=== PATIENT | female | born 1995 | race Caucasian/White ===

== ENCOUNTER 2017-03-14 21:28 | Emergency (ER) | payer OTHER ==
[~2017-03-14] VITALS: Ht 154.9 cm; Wt 56.7 kg
[2017-03-14 21:28] VITALS: BP 120/72
--- NOTE | 2017-03-15 08:12 | REP ---
Right four views: There is no fracture or dislocation. Mineralization joint spaces are normal. There is a tiny opacity in the soft tissues, possibly a foreign body. Signed by Anibal Anderson MD 03/15/2017 08:03 A
--- NOTE | 2017-03-16 21:31 | ED PDOC ---
Post-Departure Follow-Up jordan arambula faxed formal report of right fingers for fu Magdy Goode MD Mar 16, 2017 21:31
== END 2017-03-14 22:16 | disposition home or self-care (01) ==
LOC: M ED 21:58
DX: S60.011A Contusion of right thumb without damage to nail, initial encounter (principal); W23.1XXA Caught, crushed, jammed, or pinched between stationary objects, initial encounter; Y92.099 Unspecified place in other non-institutional residence as the place of occurrence of the external cause; Y93.89 Activity, other specified; Y99.9 Unspecified external cause status

== ENCOUNTER → 2017-04-16 | Outpatient (REF) | payer OTHER | LOC: M SFHCWAGY 10:02 | PROVIDERS: ATTEND Nurse Practitioner Women's Health | DX: Z12.4 Encounter for screening for malignant neoplasm of cervix (principal) ==

== ENCOUNTER → 2017-06-30 | Outpatient (REF) | payer OTHER ==
[2017-06-30 12:24] LABS: ALBUMIN/GLOBULIN RATIO 1.43 (1.00-1.93); ALKALINE PHOSPHATASE 79 U/L (45-117); ALT/SGPT 19 U/L (12-78); ANION GAP 8 MEQ/L (8-16); AST/SGOT 15 U/L (15-37); BILIRUBIN,TOTAL 0.6 MG/DL (0.2-1.0); BLOOD UREA NITROGEN 15 MG/DL (7-18); CALCIUM LEVEL 8.6 MG/DL (8.5-10.1); CARBON DIOXIDE LEVEL 28 MEQ/L (21-32); CHLORIDE LEVEL 105 MEQ/L (98-107); CHOLESTEROL LEVEL 179 MG/DL (<200); CREATININE FOR GFR 0.67 MG/DL (0.55-1.02); FREE T4 0.89 NG/DL (0.76-1.46); GLOMERULAR FILTRATION RATE > 60.0 (>60); GLUCOSE, FASTING 87 MG/DL (70-105); POTASSIUM SERUM 4.3 MEQ/L (3.5-5.1); SODIUM LEVEL 141 MEQ/L (136-145); TOTAL PROTEIN 6.8 GM/DL (6.4-8.2); TRIGLYCERIDES LEVEL 35 MG/DL (<150)
[2017-06-30 12:49] LABS: MEAN CORPUSCULAR HEMOGLOBIN 32.7 pg (27.0-33.0); MEAN CORPUSCULAR HGB CONC 35.3 g/dl (32.0-36.5); MEAN CORPUSCULAR VOLUME 92.5 fl (80.0-96.0); RED CELL DISTRIBUTION WIDTH 12.1 % (11.5-14.5)
== END ==
LOC: M SFHCPLAZ 09:41
PROVIDERS: ATTEND Nurse Practitioner Family
DX: R51 Headache (principal); F41.9 Anxiety disorder, unspecified; Z13.220 Encounter for screening for lipoid disorders

== ENCOUNTER 2017-10-20 10:42 | Outpatient (RCR) | payer OTHER | END 2017-10-23 | LOC: M PT 10:42 | PROVIDERS: ATTEND Psychiatry & Neurology Neurology | DX: Z51.89 Encounter for other specified aftercare (principal); M54.9 Dorsalgia, unspecified ==

== ENCOUNTER 2017-10-24 13:01 | Outpatient (RCR) | payer OTHER | END 2017-11-23 | LOC: M PT 13:01 | DX: Z51.89 Encounter for other specified aftercare (principal); M54.2 Cervicalgia; M54.89 Other dorsalgia | CPT/HCPCS: 97010 ==

== ENCOUNTER → 2018-05-29 | Outpatient (REF) | payer OTHER | LOC: M SFHCWAGY 13:33 | DX: Z12.4 Encounter for screening for malignant neoplasm of cervix (principal) ==

== ENCOUNTER → 2019-03-10 | Outpatient (CLI) | payer OTHER ==
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
== END ==
LOC: M PAIN 09:00
PROVIDERS: ATTEND Nurse Practitioner Family
DX: M79.18 Myalgia, other site (principal); Z86.59 Personal history of other mental and behavioral disorders; G43.909 Migraine, unspecified, not intractable, without status migrainosus; Z88.1 Allergy status to other antibiotic agents; Z88.8 Allergy status to other drugs, medicaments and biological substances; Z79.899 Other long term (current) drug therapy

== ENCOUNTER → 2019-08-27 | Outpatient (REF) | payer OTHER ==
[2019-08-27 13:11] LABS: APPEARANCE, URINE HAZY (CLEAR); BACTERIA, URINE AUTO 1+ (NEGATIVE); BILIRUBIN, URINE AUTO NEGATIVE (NEGATIVE); BLOOD, URINE BLOOD 1+ (NEGATIVE); COLOR, URINE YELLOW (YELLOW); GLUCOSE, URINE (UA) AUTO NEGATIVE (NEGATIVE); KETONE, URINE AUTO NEGATIVE (NEGATIVE); LEUKOCYTE ESTERASE, URINE AUTO 1+ (NEGATIVE); MUCUS, URINE SMALL (NEGATIVE); NITRITE, URINE AUTO NEGATIVE (NEGATIVE); PROTEIN, URINE AUTO NEGATIVE (NEGATIVE); RBC, URINE AUTO 5 /HPF (0-3); SPECIFIC GRAVITY URINE AUTO 1.014 (1.002-1.035); SQUAMOUS EPITHELIAL CELL UR AU 1 /HPF (0-6); UROBILINOGEN, URINE AUTO 0.2 mg/dL (0.0-2.0); WBC, URINE AUTO 16 /HPF (0-3)
== END ==
LOC: M LAB REF 12:39
PROVIDERS: ATTEND Physician Assistant
DX: N39.0 Urinary tract infection, site not specified (principal)

== ENCOUNTER 2020-12-15 04:16 | Emergency (ER) | payer OTHER, SELFPAY ==
[~2020-12-15] VITALS: Ht 154.9 cm; Wt 72.2 kg
[2020-12-15] MEDS ORDERED: CEFD1CAP8 (04:37)
[2020-12-15 05:05] LABS: BASO % 0.5 % (0.0-1.0); EOS # 0.1 10^3/uL (0.0-0.5); EOS % 1.1 % (0.0-3.0); HEMATOCRIT 40.5 % (36.0-47.0); HEMOGLOBIN 13.8 g/dl (12.0-15.5); LYMPH # 3.8 10^3/uL (1.5-5.0); LYMPH % 48.4 % (24.0-44.0); MEAN CORPUSCULAR HEMOGLOBIN 31.5 pg (27.0-33.0); MEAN CORPUSCULAR HGB CONC 34.1 g/dl (32.0-36.5); MEAN CORPUSCULAR VOLUME 92.5 fl (80.0-96.0); MONO # 0.9 10^3/uL (0.0-0.8); NEUTROPHILS # 3.1 10^3/uL (1.5-8.5); NEUTROPHILS % 38.7 % (36.0-66.0); PLATELET COUNT, AUTOMATED 268 10^3/uL (150-450); RED BLOOD COUNT 4.38 10^6/uL (4.00-5.40); WHITE BLOOD COUNT 7.9 10^3/uL (4.0-10.0)
[2020-12-15 05:44] LABS: ALBUMIN 3.8 GM/DL (3.2-5.2); ALT/SGPT 32 U/L (12-78); BILIRUBIN,DIRECT < 0.1 MG/DL (0.0-0.2); BILIRUBIN,TOTAL 0.2 MG/DL (0.2-1.0); BLOOD UREA NITROGEN 15 MG/DL (7-18); CARBON DIOXIDE LEVEL 27 MEQ/L (21-32); CHLORIDE LEVEL 108 MEQ/L (98-107); CREATININE FOR GFR 0.78 MG/DL (0.55-1.30); GLOMERULAR FILTRATION RATE > 60.0 (>60); GLUCOSE, FASTING 93 MG/DL (70-100); HCG, SERUM QUANTITATIVE < 1.0 MIU/ML; LIPASE 63 U/L (73-393); POTASSIUM SERUM 4.6 MEQ/L (3.5-5.1); SODIUM LEVEL 142 MEQ/L (136-145)
[2020-12-15] MEDS ORDERED: ISOVUE-370 76% 100ML VIAL As Ordered ONE (07:39)
[2020-12-15] MEDS ORDERED: ONDANSETRON 4MG/2ML VIAL IV ONE (07:45)
[2020-12-15] MEDS ORDERED: KETOROLAC 30 MG/ML 1ML VIAL IV ONE (07:45)
--- NOTE | 2020-12-15 08:25 | REPVR ---
PROCEDURE INFORMATION: Exam: CT Abdomen And Pelvis With Contrast Exam date and time: 12/15/2020 7:34 AM Age: 25 years old Clinical indication: Abdominal pain; Additional info: Right sided abdominal pain TECHNIQUE: Imaging protocol: Computed tomography of the abdomen and pelvis with intravenous contrast. Radiation optimization: All CT scans at this facility use at least one of these dose optimization techniques: automated exposure control; mA and/or kV adjustment per patient size (includes targeted exams where dose is matched to clinical indication); or iterative reconstruction. Contrast material: ISOVUE 370; Contrast volume: 100 ml; Contrast route: INTRAVENOUS (IV); COMPARISON: US ECHOGRAPHY TRANSVAGINAL 04/26/2015 12:28 PM FINDINGS: Liver: Hepatomegaly. Gallbladder and bile ducts: Normal. No calcified stones. No ductal dilation. Pancreas: Normal. No ductal dilation. Spleen: Normal. No splenomegaly. Adrenal glands: Normal. No mass. Kidneys and ureters: Normal. No hydronephrosis. Stomach and bowel: Unremarkable. No obstruction. No mucosal thickening. Appendix: No evidence of appendicitis. Intraperitoneal space: Unremarkable. No free air. No significant fluid collection. Vasculature: Unremarkable. No abdominal aortic aneurysm. Lymph nodes: Unremarkable. No enlarged lymph nodes. Urinary bladder: Unremarkable as visualized. Reproductive: Involuting probably hemorrhagic left ovarian corpus luteal cyst. Bones/joints: Unremarkable. No acute fracture. Soft tissues: Unremarkable. IMPRESSION: Involuting probably hemorrhagic left ovarian corpus luteal cyst. No bowel obstruction. Normal appendix. Mild hepatomegaly. No hydronephrosis or nephrolithiasis bilaterally. Electronically signed by: Tye Kirk On 12/15/2020 08:25:39 AM
[2020-12-15] MEDS ORDERED: KETO10TAB PO (08:37)
[2020-12-15] MEDS ORDERED: ONDA4TAB6 PO (08:37)
[2020-12-15 08:51] VITALS: BP 100/56
== END 2020-12-15 08:53 | disposition home or self-care (01) ==
LOC: M ED 04:16
DX: R10.9 Unspecified abdominal pain (principal); R11.2 Nausea with vomiting, unspecified; J45.909 Unspecified asthma, uncomplicated; M41.9 Scoliosis, unspecified; G43.909 Migraine, unspecified, not intractable, without status migrainosus; Z88.0 Allergy status to penicillin; Z88.1 Allergy status to other antibiotic agents
CPT/HCPCS: 74177; 80048; 80076; 81001; 83690; 84702; 85025; 96374; 96375; 99284; J1885; J2405; Q9967

== ENCOUNTER 2020-12-22 14:39 | Emergency (ER) | payer MEDICAID, OTHER, SELFPAY ==
[~2020-12-22] VITALS: Ht 154.9 cm; Wt 71.5 kg
[~2020-12-22 14:39] MED LIST: CEFD1CAP8; KETO10TAB PO; ONDA4TAB6 PO
--- OUTSIDE RECORDS SUMMARY | 2020-12-22 14:43 | CCD ---
Author Author [facility] Organization [facility] Address Unknown Phone Unavailable Care Team Providers Care Linux Admin Name Role Phone Zainab Stout PROBLEMS Type Condition ICD9-CM Code IMI71-IC Code Onset Dates Condition S tatus SNOMED Code Notes Problem Frequent headaches R51 Active 662137898 Problem Family history of diabetes mellitus (DM) Z83.3 Active 455329794 Problem Anxiety F41.9 Active 84689851 Problem Chronic seasonal allergic rhinitis, unspecified trigger J30.2 Active 081032471 ALLERGIES Allergen (clinical drug ingredient) Drug/Non Drug Allergy do cumented on EMR Reaction Allergy Type Onset Date Status ethinyl estradiol / ethynodiol Zovia (28)([facility] Code:32561-0 260-01) Anxiety Drug Allergy Active azithromycin Zithromax(ND Code:[address]-88) Hives, Rash Drug Aller gy Active amoxicillin Amoxicillin(NDC Code:[address]-77) Hives, Rash Drug Robb rgy Active ENCOUNTERS from 1994 to 2020-12-20 Encounter Location Date Provider Diagnosis [address] [address] Nov, 021 Zainab Stout IMMUNIZATIONS Vaccine Route Administration Date Status Influenza (6mo & up) Fluzone Unknown Oct 03, 2017 Adm inistered SOCIAL HISTORY Tobacco Use: Social History Observation Description Date Details (start date - stop date) Never Smoker Sex Assigned At : Social History Observation Description Sex Assigned At Unknown Education: Question Answer Notes Level of Education: Finished College Language: Question Answer Notes Languages spoken: Algerian Samaritan: Question Answer Notes Samaritan 33 None No voodoo beliefs that would impact health care. Sexual Hx: Question Answer Notes Had sex in the last 12 months (vaginal, oral, or anal)? Yes Have you ever had an STD? No with Men only Use protection? No Alcohol Screening: Question Answer Notes Did you have a drink containing alcohol in the past year? Ye s Points 2 Interpretation Negative How often did you have six or more drinks on one occas ion in the past year? Never (0 points) How many drinks did you have on a typica l day when you were drinking in the past year? 1 or 2 (0 points) How often did you have a drink containing alcohol in t he past year? Two to four times a month (2 points) BMI Care Goal Follow-Up Question Answer Notes Above Normal BMI Follow-Up Lifestyle education regarding t Tobacco Use: Question Answer Notes Are you a: never smoker never smoker REASON FOR REFERRAL No Information VITAL SIGNS No information MEDICATIONS Medication SIG (Take, Route, Frequency, Duration) Notes Start Da te End Date Status Venlafaxine HCl ER 37.5 MG 1 capsule with food Orally Once a day for 30 day(s) Not-Taking Methocarbamol 500 MG 1 tab Orally three times a day as needed Active MiraLax 1 packet mixed with 8 ounces of fluid Orally Onc e a day for 30 day(s) March, Not-Taking Azelastine HCl 0.1 % 1 puff in each nostril Nasally Twice a day for 30 day(s) March, Not-Taking NuvaRing 0.12-0.015 MG/24HR 1 ring Vaginal for 30 day(s) 1 Mar, 2019 Active Clobetasol Propionate 0.05 % 1 application to rash on hands to affected area Externally Twice a day as needed for 30 day(s) March, Not-Taking PROCEDURES No Information RESULTS No Results REASON FOR VISIT ER Visit [facility] 12/15; Abd Pain MEDICAL (GENERAL) HISTORY Type Description Date Medical History childhood asthma Medical History scoliosis Medical History post concussive syndrome Medical History anxiety Medical History seasonal allergies Medical History migraines Surgical History T & A Surgical History laparoscopy in [place] 12/08/16 Hospitalization History surgery Goals Section No Information Health Concerns No Information MEDICAL EQUIPMENT No Information MENTAL STATUS No Information FUNCTIONAL STATUS No Information ASSESSMENTS No Information PLAN OF TREATMENT Medication Medication Name Sig Start Date Stop Date NuvaRing 0.12-0.015 MG/24HR 1 ring Vaginal for 30 day(s) March, Next Appt Details Provider Name:Zainab Stout, 2020-12-29 09:1 5:00 AM, [address] [place], [address], Provider Name:Marita Vincent, 2021-01-12 03:00:00 PM, [address] [place], [address], Insurance Providers Payer Name Payer Address Payer Phone Insured Name Patient Relati onship to Insured Coverage Start Date Coverage End Date [facility] [employer] [facility] [address] [facility] [phone] MARA RYDER self
--- OUTSIDE RECORDS SUMMARY | 2020-12-22 14:43 | CCD | Continuity of Care Document ---
Author Author Ryanne GRUBBS Organization Unknown Address [address] [place] [address] Phone [phone] Problems Description No Information Available Social History Type Date Description Comments Sex Unknown Allergies, Adverse Reactions, Alerts Description No Information Available Medications Description No Information Available Immunizations Description No Information Available Vital Signs Description No Information Available Results Description No Information Available Procedures Description No Information Available Medical Devices Description No Information Available Encounters Description No Information Available Assessments Date Code Description Provider 12/05/2020 Z20.828 Contact with and (almazan spected) exposure to other viral communicable diseases Anna France Plan of Treatment No Information Available Functional Status Description No Information Available Mental Status Description No Information Available Referrals Description No Information Available
--- OUTSIDE RECORDS SUMMARY | 2020-12-22 14:43 | CCD | Continuity of Care Document ---
Author Author Ryanne GRUBBS Organization Unknown Address [address] [place] [address] Phone [phone] Problems Description No Information Available Social History [...]
--- OUTSIDE RECORDS SUMMARY | 2020-12-22 14:43 | CCD | Continuity of Care Document ---
Author Author Ryanne DIXON M.D. Organization Unknown Address [address] [place] [address] Phone [phone] Care Team Providers Care Process Assistant Name Role Phone Zainab Stout AUT [phone] Problems Active Problems Provider Date Pain in limb Dorinda Dixon M.D. Onset: 09/11/2017 Neck pain Dorinda Dixon M.D. Onset: 09/11/2017 Social History Type Date Description Comments Sex Unknown Tobacco Use Start: Unknown Patient has never smoked Allergies, Adverse Reactions, Alerts Active Allergies Reaction Severity Comments Date Amoxicillin 09/11/2017 Zithromax 09/11/2017 Medications Active Medications SIG Qnty Indications Ordering Provide r Date Zofran Odt 4mg Tablets Dispers take 1 tabs every 8 hours as needed for nausea or migraines. anya Dixon M.D. 09/12/2017 Methocarbamol 500mg Tablets Take 1 tablet by mouth up to three times a day as needed muscle spasms. anya Dixon M.D. 09/11/2017 Immunizations Description No Information Available Vital Signs Date Vital Result Comment 11/21/2020 12:08pm Respiratory Rate 12 /min Height 61 inches 5'1" Weight 145.00 lb BMI (Body Mass Index) 27.4 kg/m2 [place] Body Weight 105 lb 03/11/2019 1:38pm BP Systolic 120 mmHg BP Diastolic 68 mmHg Heart Rate 76 /min Respiratory Rate 12 /min Height 61 inches 5'1" Weight 145.00 lb BMI (Body Mass Index) 27.4 kg/m2 [place] Body Weight 105 lb Results Description No Information Available Procedures Description No Information Available Medical Devices Description No Information Available Encounters Type Date Location Provider Dx Diagnosis Office Visit 11/21/2020 11:30a Main office - [place] Dorinda weir M.D. Q07.00 Arnold-Chiari syndrome without spina bif reagan or hydrocephalus M54.2 Cervicalgia Assessments Date Code Description Provider 11/21/2020 Q07.00 Arnold-Chiari syndrome without s lo bifida or hydrocephalus Dorinda Dixon M.D. 11/21/2020 M54.2 Cervicalgia Dorinda Dixon M.D. Plan of Treatment No Information Available Functional Status Description No Information Available Mental Status Description No Information Available Referrals Refer to Dr Reason for Referral Status Appt Date Dorinda Dixon M.D. Created [address] [place] [address] [phone] Dorinda Dixon M.D. Created [address] [place] [address] [phone]
--- OUTSIDE RECORDS SUMMARY | 2020-12-22 14:43 | CCD | Continuity of Care Document ---
Author Author Ryanne FITCH MD Organization Unknown Address [address], [address] [place] [address] Phone [phone] Care Team Providers Care Marble Polisher Hand Name Role Phone Dorinda Lan Md AUTM [phone] Zainab Stout Unavailable Problems Description No Information Available Social History Type Date Description Comments Sex Unknown ETOH Use Currently consumes alcohol Socia lly Tobacco Use Reviewed: 11/22/20 Patient has never smoked Recreational Drug Use Denies Drug Use Smoking Status Reviewed: 11/22/20 Patient has never smoked Allergies, Adverse Reactions, Alerts Active Allergies Reaction Severity Comments Date Amoxicillin Urticaria 03/11/2018 Zithromax Urticaria 03/11/2018 Medications Active Medications SIG Qnty Indications Ordering Provide r Date Nexplanon 68mg Implant dir ected Unknown Methocarbamol 500mg Tablets A S needed Unknown Immunizations Description No Information Available Vital Signs Date Vital Result Comment 11/22/2020 1:44pm Height 61 inches 5'1" Weight 155.00 lb BMI (Body Mass Index) 29.3 kg/m2 BP Systolic 121 mmHg BP Diastolic 88 mmHg Heart Rate 91 /min Body Temperature 97.7 F Body Temperature 36.5 C 03/08/2019 9:37am BP Systolic 108 mmHg BP Diastolic 73 mmHg Heart Rate 83 /min Body Temperature 97.6 F Body Temperature 36.4 C Results Description No Information Available Procedures Description No Information Available Medical Devices Description No Information Available Encounters Type Date Location Provider Dx Diagnosis Office Visit 11/22/2020 1:40p [facility] Napoleon Fitch MD Q0 7.00 Arnold-Chiari syndrome without spina bifida or hydrocephalus Assessments Date Code Description Provider 11/22/2020 Q07.00 Arnold-Chiari syndrome without s lo bifida or hydrocephalus Napoleon Fitch MD Plan of Treatment 11/22/2020 - Napoleon Fitch MD* 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
--- OUTSIDE RECORDS SUMMARY | 2020-12-22 14:44 | CCD | Continuity of Care Document ---
Author Author Ryanne FITCH MD Organization Unknown Address [address], [address] [place] [address] Phone [phone] Care Team Providers Care Fretted String Instrument Repairer Name Role Phone Dorinda Lan Md AUTM [phone] Zainab Stout Unavailable Problems Description No Information [...]
--- OUTSIDE RECORDS SUMMARY | 2020-12-22 14:44 | CCD | Continuity of Care Document ---
Author Author Ryanne DIXON M.D. Organization Unknown Address [address] [place] [address] Phone [phone] Care Team Providers Care Product Info Specialist Name Role Phone Dre Azul M.D. AUTM [phone] Zainab Stout AUTM [phone] Problems Active Problems Provider Date Pain in [...] hours as needed for nausea or migraines. 15samira Dixon M.D. 09/12/2017 Methocarbamol 500mg Tablets Take 1 tablet by mouth up to three times a day as needed muscle spasms. 15samira Dixon M.D. 09/11/2017 Immunizations Description No Information Available Vital Signs Date Vital Result Comment 11/21/2020 12:08pm Respiratory Rate 12 /min Height 61 inches 5'1" Weight 145.00 lb BMI (Body Mass Index) 27.4 kg/m2 [place] Body Weight 105 lb 03/11/2019 1:38pm BP Systolic 120 mmHg BP Diastolic 68 mmHg Heart Rate 76 /min Respiratory Rate 12 /min Height 61 inches 5'1" Weight 145.00 lb BMI (Body Mass Index) 27.4 kg/m2 [place] Body Weight 105 lb Results Description No Information Available Procedures Description No Information Available Medical Devices Description No Information Available Encounters Description No Information Available Assessments Date Code Description Provider 11/21/2020 Q07.00 Arnold-Chiari syndrome without s lo bifida or hydrocephalus Dorinda Dixon M.D. 11/21/2020 M54.2 Cervicalgia Dorinda Dixon M.D. Plan of Treatment No Information Available Functional Status Description No Information Available Mental Status Description No Information Available Referrals Description No Information Available
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
--- OUTSIDE RECORDS SUMMARY | 2020-12-22 14:44 | CCD | Continuity of Care Document ---
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
[2020-12-22] MEDS ORDERED: MIRA3350 PO (14:49)
[2020-12-22] MEDS ORDERED: COLON CLEANSE PO (14:49)
[2020-12-22] MEDS ORDERED: [UNRECOGNIZED DRUG - OTHER] (14:49)
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
[2020-12-22 15:47] LABS: BASO % 0.5 % (0.0-1.0); EOS % 0.7 % (0.0-3.0); HEMATOCRIT 39.9 % (36.0-47.0); HEMOGLOBIN 13.3 g/dl (12.0-15.5); LYMPH # 1.9 10^3/uL (1.5-5.0); LYMPH % 32.3 % (24.0-44.0); MEAN CORPUSCULAR HEMOGLOBIN 30.4 pg (27.0-33.0); MEAN CORPUSCULAR HGB CONC 33.3 g/dl (32.0-36.5); MEAN CORPUSCULAR VOLUME 91.1 fl (80.0-96.0); MONO # 0.5 10^3/uL (0.0-0.8); NEUTROPHILS # 3.4 10^3/uL (1.5-8.5); NEUTROPHILS % 58.3 % (36.0-66.0); PLATELET COUNT, AUTOMATED 235 10^3/uL (150-450); RED BLOOD COUNT 4.38 10^6/uL (4.00-5.40); WHITE BLOOD COUNT 5.9 10^3/uL (4.0-10.0)
[2020-12-22 16:18] LABS: ALBUMIN 3.9 GM/DL (3.2-5.2); BILIRUBIN,DIRECT 0.1 MG/DL (0.0-0.2); BILIRUBIN,TOTAL 0.3 MG/DL (0.2-1.0); TOTAL PROTEIN 7.4 GM/DL (6.4-8.2)
--- NOTE | 2020-12-22 17:17 | REP ---
INDICATION: constipation/pain. COMPARISON: None TECHNIQUE: Two views FINDINGS: There is a moderate to large amount of content seen throughout the colon. The organ silhouettes are for the most part are obscured by the intestinal content. There is no evidence of free air. There is a thoracolumbar scoliosis. IMPRESSION: Intestinal content as described above consistent with the clinical diagnosis of constipation. <Electronically signed by Apollo Mahajan > 12/22/20 [id number]
[2020-12-22] MEDS ORDERED: RA M1.74 PO (17:30)
[2020-12-22 17:53] VITALS: BP 114/68
== END 2020-12-22 17:54 | disposition home or self-care (01) ==
LOC: M ED 14:39
DX: K59.00 Constipation, unspecified (principal); F41.9 Anxiety disorder, unspecified; Z79.899 Other long term (current) drug therapy; Z88.0 Allergy status to penicillin; Z88.1 Allergy status to other antibiotic agents

== ENCOUNTER → 2020-12-28 | Outpatient (REF) | payer OTHER ==
[~2020-12-28] MED LIST changes: +COLON CLEANSE PO; +MIRA3350 PO; +RA M1.74 PO; +[UNRECOGNIZED DRUG - OTHER]
== END ==
LOC: M SFHCWAGY 16:47
PROVIDERS: ATTEND Nurse Practitioner Family
DX: Z12.4 Encounter for screening for malignant neoplasm of cervix (principal); Z01.419 Encounter for gynecological examination (general) (routine) without abnormal findings

== ENCOUNTER → 2020-12-30 | Outpatient (CLI) | payer OTHER ==
[2020-12-30 12:28] LABS: ALBUMIN 3.9 GM/DL (3.2-5.2); ALT/SGPT 27 U/L (12-78); BILIRUBIN,TOTAL 0.4 MG/DL (0.2-1.0); BLOOD UREA NITROGEN 19 MG/DL (7-18); CALCIUM LEVEL 9.3 MG/DL (8.5-10.1); CARBON DIOXIDE LEVEL 28 MEQ/L (21-32); CHLORIDE LEVEL 105 MEQ/L (98-107); CHOLESTEROL LEVEL 194 MG/DL (<200); CHOLESTEROL RISK RATIO 2.852 (<5); CREATININE FOR GFR 0.76 MG/DL (0.55-1.30); FREE T4 0.99 NG/DL (0.76-1.46); GLOMERULAR FILTRATION RATE > 60.0 (>60); GLUCOSE, FASTING 76 MG/DL (70-100); HDL CHOLESTEROL 68 MG/DL (>40); LDL CHOLESTEROL 119 MG/DL (<100); NON-HDL-C 126 MG/DL; POTASSIUM SERUM 4.2 MEQ/L (3.5-5.1); SODIUM LEVEL 141 MEQ/L (136-145); TOTAL PROTEIN 7.1 GM/DL (6.4-8.2); TRIGLYCERIDES LEVEL 33 MG/DL (<150)
[2020-12-30 12:32] LABS: HEMOGLOBIN A1c 5.2 %
== END ==
LOC: M LAB 09:31
PROVIDERS: ATTEND Nurse Practitioner Family
DX: K59.00 Constipation, unspecified (principal); Z83.3 Family history of diabetes mellitus; Z13.220 Encounter for screening for lipoid disorders

== ENCOUNTER → 2021-01-15 | Outpatient (CLI) | payer OTHER ==
--- NOTE | 2021-01-15 18:06 | REP ---
INDICATION: LEFT OVARIAN CYST. COMPARISON: 05/23/2015. TECHNIQUE: Transabdominal scanning performed. FINDINGS: Uterine dimensions are 6.8 x 3.7 x 5.3 cm. Endometrial echo is 7 mm in AP dimension and centrally placed. Uterus is retroverted. The bladder measures 9.1 x 8.3 x 5.6 cm. The right ovary has dimensions of 3.7 x 1.8 x 2.5 cm. It's Doppler flow is normal with a resistive index of 0.55. The left ovary dimensions are 2.0 x 1.7 x 2.7 cm. It's Doppler flow was normal with resistive index of 0.55. There is no adnexal mass identified. No free fluid is seen in the cul-de-sac. IMPRESSION: Negative pelvic ultrasound. <Electronically signed by Anibal De La Rosa > 01/15/21 [id number]
== END ==
LOC: M WHC 15:53
PROVIDERS: ATTEND Nurse Practitioner Family
DX: Z87.42 Personal history of other diseases of the female genital tract (principal)

== ENCOUNTER → 2021-01-21 | Outpatient (REF) | LOC: M LABSMTC 10:55 | PROVIDERS: ATTEND Pediatrics | DX: Z11.52 Encounter for screening for COVID-19 (principal) ==

== ENCOUNTER → 2021-04-02 | Outpatient (REF) | payer OTHER | LOC: M PLALAB 14:40 | PROVIDERS: ATTEND Nurse Practitioner Family | DX: E55.9 Vitamin D deficiency, unspecified (principal) ==

== ENCOUNTER → 2021-05-30 | Outpatient (CLI) | payer OTHER ==
[2021-05-30 18:01] LABS: ALBUMIN 3.9 GM/DL (3.2-5.2); ALT/SGPT 23 U/L (12-78); BILIRUBIN,TOTAL 0.2 MG/DL (0.2-1.0); BLOOD UREA NITROGEN 17 MG/DL (7-18); CALCIUM LEVEL 9.4 MG/DL (8.5-10.1); CARBON DIOXIDE LEVEL 28 MEQ/L (21-32); CHLORIDE LEVEL 105 MEQ/L (98-107); CREATININE FOR GFR 0.67 MG/DL (0.55-1.30); GLOMERULAR FILTRATION RATE > 60.0 (>60); GLUCOSE, FASTING 83 MG/DL (70-100); POTASSIUM SERUM 4.2 MEQ/L (3.5-5.1); SODIUM LEVEL 141 MEQ/L (136-145); TOTAL PROTEIN 7.3 GM/DL (6.4-8.2)
== END ==
LOC: M PLALAB 14:37
PROVIDERS: ATTEND Nurse Practitioner Family
DX: B35.1 Tinea unguium (principal)

== ENCOUNTER 2021-08-10 15:04 | Emergency (ER) | payer OTHER, MEDICAID ==
[~2021-08-10] VITALS: Ht 154.9 cm; Wt 76.0 kg
[2021-08-10] MEDS ORDERED: KETOROLAC TROMETHAMINE 10 MG TAB PO ONE (18:30)
--- NOTE | 2021-08-10 19:10 | REPVR ---
PROCEDURE INFORMATION: Exam: CT Cervical Spine Without Contrast Exam date and time: 08/10/2021 6:29 PM Age: 25 years old Clinical indication: Neck pain; Additional info: Neck pain radiating to left shoulder TECHNIQUE: Imaging protocol: Computed tomography images of the cervical spine without contrast. Radiation optimization: All CT scans at this facility use at least one of these dose optimization techniques: automated exposure control; mA and/or kV adjustment per patient size (includes targeted exams where dose is matched to clinical indication); or iterative reconstruction. COMPARISON: No relevant prior studies available. FINDINGS: Bones/joints: No acute fracture. Normal alignment. Discs/Spinal canal/Neural foramina: No significant disc protrusion. No severe spinal canal stenosis. No significant neural foraminal narrowing. Lungs: Lung apices are normal. Soft tissues: Unremarkable. IMPRESSION: No acute findings. Electronically signed by: Lucian Roth On 08/10/2021 19:09:44 PM
--- NOTE | 2021-08-10 20:05 | REP ---
INDICATION: left shoulder pain. COMPARISON: None. TECHNIQUE: Three views of the left shoulder were performed. FINDINGS: The acromioclavicular and glenohumeral relationships are within normal limits. There is no acute fracture or destructive osseous lesion. IMPRESSION: Within normal limits <Electronically signed by Apollo Mahajan > 08/10/212000
--- NOTE | 2021-08-10 20:05 | REP ---
INDICATION: left shoulder pain. COMPARISON: None. TECHNIQUE: PA and lateral FINDINGS: The superior mediastinal structures are midline. The cardiac silhouette is unremarkable in size, shape, and position. The diaphragmatic surfaces of the lungs are regular, and the costophrenic angles are clear. The pulmonary chao are clear. The imaged osseous structures are intact. IMPRESSION: There is no acute cardiopulmonary disease. <Electronically signed by Apollo Mahajan > 08/10/212001
[2021-08-10] MEDS ORDERED: NAPR-837 PO (20:38)
[2021-08-10] MEDS ORDERED: METH-1164 PO (20:38)
[2021-08-10] MEDS ORDERED: LIDO5DIS41 TD (20:38)
[2021-08-10 21:17] VITALS: BP 100/63
--- NOTE | 2021-08-11 05:17 | ECGEPIP ---
[facility] - ED Test Date: 2021-08-10 Pat Name: MARA RYDER Department: Room: - Gender: Female Verification Rep: SCOT : 1995 Requested By: Magdy Wright Order Number: [id number] Reading MD: Hernán Handy Measurements Intervals [place] Rate: 74 P: 31 [place]: 124 QRS: 51 QRSD: 80 T: 30 QT: 378 QTc: 419 Interpretive Statements Normal sinus rhythm with sinus arrhythmia NONSPECIFIC T WAVE ABNORMALITY(S) NO PRIORS FOR COMPARISON Electronically Signed on 08-11-2021 5:17:11 EDT by Hernán Handy
== END 2021-08-10 21:20 | disposition home or self-care (01) ==
LOC: M ED 15:04
DX: R07.89 Other chest pain (principal); M54.2 Cervicalgia; M25.512 Pain in left shoulder; R00.2 Palpitations; R05 Cough; Z88.0 Allergy status to penicillin; Z88.1 Allergy status to other antibiotic agents

== ENCOUNTER → 2021-08-22 | Outpatient (CLI) | payer OTHER ==
[~2021-08-22] MED LIST changes: +LIDO5DIS41 TD; +METH-1164 PO; +NAPR-837 PO
[2021-08-22 16:16] LABS: ALBUMIN 3.6 GM/DL (3.2-5.2); ALT/SGPT 19 U/L (12-78); BILIRUBIN,TOTAL 0.4 MG/DL (0.2-1.0); BLOOD UREA NITROGEN 13 MG/DL (7-18); CALCIUM LEVEL 9.2 MG/DL (8.5-10.1); CARBON DIOXIDE LEVEL 28 MEQ/L (21-32); CHLORIDE LEVEL 107 MEQ/L (98-107); CREATININE FOR GFR 0.72 MG/DL (0.55-1.30); GLOMERULAR FILTRATION RATE > 60.0 (>60); GLUCOSE, FASTING 84 MG/DL (70-100); POTASSIUM SERUM 4.1 MEQ/L (3.5-5.1); SODIUM LEVEL 138 MEQ/L (136-145)
[2021-08-22 16:18] LABS: TOTAL 25(OH) VITAMIN D 29.4 NG/ML (30.0-100.0)
== END ==
LOC: M PLALAB 11:50
PROVIDERS: ATTEND Nurse Practitioner Family
DX: E55.9 Vitamin D deficiency, unspecified (principal)

== ENCOUNTER → 2021-09-11 | Outpatient (CLI) | payer OTHER ==
[2021-09-11 14:28] LABS: BASO % 0.6 % (0.0-1.0); EOS % 0.4 % (0.0-3.0); HEMATOCRIT 36.5 % (36.0-47.0); HEMOGLOBIN 12.5 g/dl (12.0-15.5); LYMPH % 27.2 % (24.0-44.0); MEAN CORPUSCULAR HEMOGLOBIN 31.1 pg (27.0-33.0); MEAN CORPUSCULAR HGB CONC 34.2 g/dl (32.0-36.5); MEAN CORPUSCULAR VOLUME 90.8 fl (80.0-96.0); MONO # 0.6 10^3/uL (0.0-0.8); MONO % 7.9 % (2.0-8.0); NEUTROPHILS # 4.6 10^3/uL (1.5-8.5); NEUTROPHILS % 63.5 % (36.0-66.0); PLATELET COUNT, AUTOMATED 257 10^3/uL (150-450); RED BLOOD COUNT 4.02 10^6/uL (4.00-5.40); WHITE BLOOD COUNT 7.3 10^3/uL (4.0-10.0)
[2021-09-11 14:45] LABS: HEMOGLOBIN A1c 5.2 %
[2021-09-11 15:03] LABS: FREE T4 1.02 NG/DL (0.76-1.46)
[2021-09-11 15:44] LABS: HIV 1&2 SCREEN CENTAUR NEGATIVE (NEGATIVE)
[2021-09-11 17:06] LABS: GC DNA AMPLIFICATION NEGATIVE (NEGATIVE)
== END ==
LOC: M PLALAB 10:49
PROVIDERS: ATTEND Advanced Practice Midwife
DX: Z34.91 Encounter for supervision of normal pregnancy, unspecified, first trimester (principal); Z3A.08 8 weeks gestation of pregnancy

== ENCOUNTER → 2021-10-09 | Outpatient (CLI) | payer OTHER ==
--- NOTE | 2021-10-09 11:00 | REP ---
INDICATION: CALCULUS OF KIDNEY COMPARISON: None TECHNIQUE: Real time morales scale ultrasound examination using curved array transducer. FINDINGS: Bilateral kidneys are normal in contour, size, echogenicity, and reniform shape. No hydronephrosis, nephrolithiasis, cystic or renal mass lesion. No perinephric fluid collection. Right kidney measures 11.5 x 4.7 x 4.1 cm. Left kidney measures 10.7 x 5.1 x 4.8 cm. Bladder demonstrates normal bilateral ureteral jets. IMPRESSION: 1. Normal renal ultrasound. 2. <Electronically signed by Jose Richardson > 10/09/21 [id number]
== END ==
LOC: M WHC 10:09
PROVIDERS: ATTEND Family Medicine
DX: N20.0 Calculus of kidney (principal)

== ENCOUNTER → 2021-10-09 | Outpatient (CLI) | payer OTHER | LOC: M PLALAB 11:50 | PROVIDERS: ATTEND Specialist | DX: Z36.9 Encounter for antenatal screening, unspecified (principal); Z3A.00 Weeks of gestation of pregnancy not specified ==

== ENCOUNTER → 2021-11-12 | Outpatient (REF) ==
[~2021-11-12] MED LIST changes: -CEFD1CAP8; +CEFD300C41
[2021-11-12 12:21] LABS: RSV AMPLIFICATION NEGATIVE (NEGATIVE)
== END ==
LOC: M EMP 11:17
PROVIDERS: ATTEND Family Medicine
DX: Z11.52 Encounter for screening for COVID-19 (principal); Z20.822 Contact with and (suspected) exposure to COVID-19

== ENCOUNTER → 2021-11-22 | Outpatient (CLI) | payer OTHER, MEDICAID ==
[~2021-11-22] MED LIST changes: +CEFD1CAP8; -CEFD300C41
--- NOTE | 2021-11-22 10:14 | REP ---
INDICATION: ENCONUTER FOR SUPERVISION. COMPARISON: None. TECHNIQUE: Transabdominal scanning FINDINGS: Multiple ultrasonographic images of the gravid uterus shows a single living intrauterine gestation in the breech presentation. Doppler interrogation of the heart shows a heart rate of 135 beats per minute. The placenta is anterior and not low-lying. The cervix measures 3.3 cm in length and is closed. The subjective amniotic fluid volume is within normal limits. BPD: 3.9 cm 17 weeks 5 days AC: 14.1 cm 17 weeks 3 days AC: 12.7 cm 18 weeks 2 days FL: 2.7 cm 18 weeks 0 days The estimated weight is 224 g which is at the 21st percentile. anatomical structures to be unremarkable are as follows: Thalami, cavum septum pellucidum, cerebellum, cisterna magna, cerebral ventricles, spine, kidneys, urinary bladder, three-vessel umbilical cord, cord insertion, upper lip, stomach, and extremities. Structures seen suboptimally are as follows: Four-chamber heart and ventricular outflow tracks. IMPRESSION: Single living intrauterine gestation as described above with an estimated gestational age of 17 weeks 5 days via composite criteria and an estimated date of delivery of 04/27/2022 by today's exam. No anomalies were detected, however, I recommend a follow-up examination to re-evaluate four-chamber heart view and ventricular outflow tracks. <Electronically signed by Apollo Mahajan > 11/22/21 [id number]
== END ==
LOC: M WHC 08:35
PROVIDERS: ATTEND Specialist
DX: Z34.02 Encounter for supervision of normal first pregnancy, second trimester (principal); Z3A.17 17 weeks gestation of pregnancy

== ENCOUNTER → 2021-12-10 | Outpatient (CLI) | payer OTHER ==
[~2021-12-10] MED LIST changes: -CEFD1CAP8; +CEFD300C41
== END ==
LOC: M WHC 11:25
PROVIDERS: ATTEND Specialist
DX: Z36.9 Encounter for antenatal screening, unspecified (principal); Z3A.19 19 weeks gestation of pregnancy

== ENCOUNTER → 2021-12-26 | Outpatient (REF) | payer OTHER ==
[2021-12-26 17:49] LABS: APPEARANCE, URINE MANUAL HAZY (CLEAR); COLOR, URINE MANUAL LT YELLOW (YELLOW)
[2021-12-26 17:50] LABS: BILIRUBIN, URINE MANUAL NEGATIVE (NEGATIVE); BLOOD URINE MANUAL NEGATIVE (NEGATIVE); GLUCOSE, URINE (UA) MANUAL NEGATIVE (NEGATIVE); KETONE, URINE MANUAL NEGATIVE (NEGATIVE); LEUKOCYTE ESTERASE, URINE MAN TRACE (NEGATIVE); NITRITE, URINE MANUAL NEGATIVE (NEGATIVE); PH,URINE MAN 6.5 UNITS (5.0 - 7.0); PROTEIN, URINE MANUAL NEGATIVE (NEGATIVE); UROBILINOGEN, URINE MANUAL NORMAL (NORMAL)
[2021-12-26 18:52] LABS: AMORPHOUS SEDIMENT, URINE MOD AMOUNT (NEGATIVE); BACTERIA, URINE MOD AMOUNT; MUCUS, URINE SMALL AMOUNT (NEGATIVE); RBC, URINE NONE SEEN /hpf (0-3); SQUAMOUS EPITHELIAL CELL URINE LARGE AMOUNT /hpf (SMALL AMT)
[2021-12-26 18:54] LABS: HYALINE CAST, URINE 0-1 /lpf (0-1)
[2021-12-26 20:04] LABS: GC DNA AMPLIFICATION NEGATIVE (NEGATIVE)
== END ==
LOC: M PLALAB 15:41
PROVIDERS: ATTEND Obstetrics & Gynecology
DX: Z36.9 Encounter for antenatal screening, unspecified (principal); Z3A.23 23 weeks gestation of pregnancy

== ENCOUNTER → 2022-02-04 | Outpatient (CLI) | payer OTHER, MEDICAID ==
[2022-02-04 17:12] LABS: AMORPHOUS SEDIMENT SMALL (NEGATIVE); APPEARANCE, URINE CLOUDY (CLEAR); BACTERIA, URINE AUTO NEGATIVE (NEGATIVE); BILIRUBIN, URINE AUTO NEGATIVE (NEGATIVE); BLOOD, URINE BLOOD NEGATIVE (NEGATIVE); COLOR, URINE YELLOW (YELLOW); GLUCOSE, URINE (UA) AUTO NEGATIVE (NEGATIVE); KETONE, URINE AUTO NEGATIVE (NEGATIVE); LEUKOCYTE ESTERASE, URINE AUTO NEGATIVE (NEGATIVE); MUCUS, URINE SMALL (NEGATIVE); NITRITE, URINE AUTO NEGATIVE (NEGATIVE); PROTEIN, URINE AUTO NEGATIVE (NEGATIVE); RBC, URINE AUTO 1 /HPF (0-3); SPECIFIC GRAVITY URINE AUTO 1.018 (1.002-1.035); SQUAMOUS EPITHELIAL CELL UR AU 1 /HPF (0-6); UROBILINOGEN, URINE AUTO 0.2 mg/dL (0.0-2.0); WBC, URINE AUTO 1 /HPF (0-3)
[2022-02-04 17:50] LABS: HEMATOCRIT 33.2 % (36.0-47.0); HEMOGLOBIN 11.3 g/dl (12.0-15.5); MEAN CORPUSCULAR HEMOGLOBIN 31.5 pg (27.0-33.0); MEAN CORPUSCULAR VOLUME 92.5 fl (80.0-96.0); PLATELET COUNT, AUTOMATED 250 10^3/uL (150-450); RED BLOOD COUNT 3.59 10^6/uL (4.00-5.40); WHITE BLOOD COUNT 10.7 10^3/uL (4.0-10.0)
== END ==
LOC: M PLALAB 13:39
PROVIDERS: ATTEND Obstetrics & Gynecology
DX: Z34.92 Encounter for supervision of normal pregnancy, unspecified, second trimester (principal); Z3A.23 23 weeks gestation of pregnancy

== ENCOUNTER → 2022-02-20 | Outpatient (CLI) | payer OTHER, MEDICAID ==
[2022-02-20 14:03] LABS: BASO % 0.4 % (0.0-1.0); EOS # 0.1 10^3/uL (0.0-0.5); EOS % 0.7 % (0.0-3.0); HEMOGLOBIN 12.3 g/dl (12.0-15.5); LYMPH # 2.2 10^3/uL (1.5-5.0); LYMPH % 20.7 % (24.0-44.0); MEAN CORPUSCULAR HEMOGLOBIN 31.8 pg (27.0-33.0); MEAN CORPUSCULAR HGB CONC 34.2 g/dl (32.0-36.5); MONO # 0.8 10^3/uL (0.0-0.8); MONO % 7.6 % (2.0-8.0); NEUTROPHILS # 7.4 10^3/uL (1.5-8.5); NEUTROPHILS % 70.1 % (36.0-66.0); PLATELET COUNT, AUTOMATED 228 10^3/uL (150-450); RED BLOOD COUNT 3.87 10^6/uL (4.00-5.40); WHITE BLOOD COUNT 10.5 10^3/uL (4.0-10.0)
[2022-02-20 15:01] LABS: ALBUMIN 2.8 GM/DL (3.2-5.2); ALT/SGPT 19 U/L (12-78); BILIRUBIN,TOTAL 0.2 MG/DL (0.2-1.0); BLOOD UREA NITROGEN 10 MG/DL (7-18); CALCIUM LEVEL 8.8 MG/DL (8.5-10.1); CARBON DIOXIDE LEVEL 25 MEQ/L (21-32); CHLORIDE LEVEL 107 MEQ/L (98-107); CHOLESTEROL LEVEL 261 MG/DL (<200); CHOLESTEROL RISK RATIO 2.747 (<5); CREATININE FOR GFR 0.61 MG/DL (0.55-1.30); FREE T4 0.94 NG/DL (0.76-1.46); GLOMERULAR FILTRATION RATE > 60.0 (>60); GLUCOSE, FASTING 89 MG/DL (70-100); HDL CHOLESTEROL 95 MG/DL (>40); LDL CHOLESTEROL 141 MG/DL (<100); NON-HDL-C 166 MG/DL; SODIUM LEVEL 137 MEQ/L (136-145); THYROID STIMULATING HORMONE 0.907 uIU/ML (0.358-3.740); TOTAL 25(OH) VITAMIN D 31.5 NG/ML (30.0-100.0); TOTAL PROTEIN 6.3 GM/DL (6.4-8.2); TRIGLYCERIDES LEVEL 126 MG/DL (<150)
[2022-02-20 16:10] LABS: HEMOGLOBIN A1c 4.9 %
== END ==
LOC: M PLALAB 11:57
PROVIDERS: ATTEND Physician Assistant Medical
DX: E55.9 Vitamin D deficiency, unspecified (principal); Z83.3 Family history of diabetes mellitus; J30.2 Other seasonal allergic rhinitis; F41.9 Anxiety disorder, unspecified

== ENCOUNTER → 2022-03-18 | Outpatient (REF) | payer OTHER | LOC: M WUC 12:16 | PROVIDERS: ATTEND Physician Assistant | DX: J02.9 Acute pharyngitis, unspecified (principal) ==

== ENCOUNTER → 2022-03-26 | Outpatient (REF) | payer OTHER | LOC: M PLALAB 08:47 | PROVIDERS: ATTEND Obstetrics & Gynecology | DX: Z36.89 Encounter for other specified antenatal screening (principal); Z3A.36 36 weeks gestation of pregnancy ==

== ENCOUNTER 2022-04-17 12:40 | Outpatient (CLI) | payer OTHER ==
[~2022-04-17] VITALS: Ht 154.9 cm; Wt 81.6 kg
[2022-04-17 13:16] VITALS: BP 126/70
[2022-04-17] MEDS ORDERED: PEPSID (13:24)
[2022-04-17] MEDS ORDERED: FLON1SPR NARES (13:24)
[2022-04-17] MEDS ORDERED: PRENTAB9 PO (13:24)
[2022-04-17] MEDS ORDERED: COLA100C5 PO (13:24)
[2022-04-17] MEDS ORDERED: HOME MED LIST COMPLETE! XX SCH (13:25)
[2022-04-17] MEDS: guaiFENesin/CODEINE SYRUP 5 ML UDC PO PRN (15:37)
[2022-04-17 15:48] VITALS: BP 127/61
[2022-04-17 17:01] VITALS: BP 113/62
== END 2022-04-17 17:05 | disposition home or self-care (01) ==
LOC: M LDO 12:40
PROVIDERS: ATTEND Advanced Practice Midwife
DX: O99.513 Diseases of the respiratory system complicating pregnancy, third trimester (principal); R05.3 Chronic cough; U09.9 Post COVID-19 condition, unspecified; Z3A.39 39 weeks gestation of pregnancy

== ENCOUNTER → 2022-09-23 | Outpatient (REF) ==
[~2022-09-23] MED LIST changes: +COLA100C5 PO; +FLON1SPR NARES; +PEPSID; +PRENTAB9 PO
[2022-09-23 10:48] LABS: RSV AMPLIFICATION NEGATIVE (NEGATIVE)
== END ==
LOC: M LABSMTC 09:20
PROVIDERS: ATTEND Family Medicine
DX: Z20.822 Contact with and (suspected) exposure to COVID-19 (principal)

== ENCOUNTER → 2022-09-26 | Outpatient (REF) | LOC: M LABSMTC 10:28 | PROVIDERS: ATTEND Family Medicine | DX: Z20.822 Contact with and (suspected) exposure to COVID-19 (principal) ==

== ENCOUNTER → 2022-12-18 | Outpatient (REF) ==
[2022-12-18 13:41] LABS: RSV AMPLIFICATION NEGATIVE (NEGATIVE)
== END ==
LOC: M LABSMTC 11:38
PROVIDERS: ATTEND Family Medicine
DX: Z11.52 Encounter for screening for COVID-19 (principal)

== ENCOUNTER → 2022-12-24 | Outpatient (REF) ==
[2022-12-24 12:16] LABS: RSV AMPLIFICATION NEGATIVE (NEGATIVE)
== END ==
LOC: M EMP 10:39
PROVIDERS: ATTEND Family Medicine
DX: Z11.59 Encounter for screening for other viral diseases (principal)

== ENCOUNTER → 2023-02-10 | Outpatient (REF) | payer OTHER ==
[2023-02-10 19:17] LABS: APPEARANCE, URINE CLEAR (CLEAR); BACTERIA, URINE AUTO NEGATIVE (NEGATIVE); BILIRUBIN, URINE AUTO NEGATIVE (NEGATIVE); BLOOD, URINE BLOOD NEGATIVE (NEGATIVE); COLOR, URINE YELLOW (YELLOW); GLUCOSE, URINE (UA) AUTO NEGATIVE (NEGATIVE); KETONE, URINE AUTO NEGATIVE (NEGATIVE); LEUKOCYTE ESTERASE, URINE AUTO NEGATIVE (NEGATIVE); MUCUS, URINE SMALL (NEGATIVE); NITRITE, URINE AUTO NEGATIVE (NEGATIVE); PROTEIN, URINE AUTO NEGATIVE (NEGATIVE); RBC, URINE AUTO 0 /HPF (0-3); SPECIFIC GRAVITY URINE AUTO 1.018 (1.002-1.035); SQUAMOUS EPITHELIAL CELL UR AU 0 /HPF (0-6); UROBILINOGEN, URINE AUTO 0.2 mg/dL (0.0-2.0); WBC, URINE AUTO 1 /HPF (0-3)
== END ==
LOC: M SFHCPLAZ 17:45
PROVIDERS: ATTEND Physician Assistant Medical
DX: R35.0 Frequency of micturition (principal)

== ENCOUNTER → 2023-07-01 | Outpatient (CLI) | payer OTHER ==
[2023-07-01 17:19] LABS: BASO % 0.4 % (0.0-1.0); EOS # 0.1 10^3/uL (0.0-0.5); EOS % 1.2 % (0.0-3.0); HEMATOCRIT 38.9 % (36.0-47.0); HEMOGLOBIN 12.9 g/dl (12.0-15.5); LYMPH # 2.5 10^3/uL (1.5-5.0); LYMPH % 37.3 % (24.0-44.0); MEAN CORPUSCULAR HEMOGLOBIN 30.1 pg (27.0-33.0); MEAN CORPUSCULAR HGB CONC 33.2 g/dl (32.0-36.5); MEAN CORPUSCULAR VOLUME 90.9 fl (80.0-96.0); MONO # 0.5 10^3/uL (0.0-0.8); MONO % 7.4 % (2.0-8.0); NEUTROPHILS # 3.6 10^3/uL (1.5-8.5); NEUTROPHILS % 53.6 % (36.0-66.0); PLATELET COUNT, AUTOMATED 275 10^3/uL (150-450); RED BLOOD COUNT 4.28 10^6/uL (4.00-5.40); WHITE BLOOD COUNT 6.7 10^3/uL (4.0-10.0)
[2023-07-01 17:37] LABS: ALBUMIN 3.7 G/DL (3.2-5.2); ALKALINE PHOSPHATASE 82 U/L (46-116); ALT/SGPT 20 U/L (7.0-40); AST/SGOT 11 U/L (<34); BILIRUBIN,TOTAL 0.3 MG/DL (0.3-1.2); BLOOD UREA NITROGEN 13 MG/DL (9-23); CALCIUM LEVEL 9.4 MG/DL (8.5-10.1); CARBON DIOXIDE LEVEL 28 MMOL/L (20-31); CHLORIDE LEVEL 105 MMOL/L (98-107); CREATININE FOR GFR 0.66 MG/DL (0.55-1.30); GLOMERULAR FILTRATION RATE > 60.0 (>60); GLUCOSE, FASTING 104 MG/DL (60-100); POTASSIUM SERUM 3.9 MMOL/L (3.5-5.1); SODIUM LEVEL 142 MMOL/L (136-145); TOTAL 25(OH) VITAMIN D 34.7 NG/ML (20.0-100.0); TOTAL PROTEIN 6.9 G/DL (5.7-8.2)
== END ==
LOC: M PLALAB 15:46
PROVIDERS: ATTEND Physician Assistant Medical
DX: E55.9 Vitamin D deficiency, unspecified (principal); J30.2 Other seasonal allergic rhinitis; J45.20 Mild intermittent asthma, uncomplicated; Z13.220 Encounter for screening for lipoid disorders; Z83.3 Family history of diabetes mellitus

== ENCOUNTER → 2023-07-25 | Outpatient (CLI) | payer OTHER ==
[2023-07-25 16:12] LABS: INR 1.02; PROTHROMBIN TIME 13.1 SECONDS (12.5-14.5)
[2023-07-25 16:13] LABS: PARTIAL THROMBOPLASTIN TIME 26.6 SECONDS (24.8-34.2)
== END ==
LOC: M LAB 15:04
PROVIDERS: ATTEND Physician Assistant Medical
DX: R23.3 Spontaneous ecchymoses (principal)

== ENCOUNTER → 2023-09-03 | Outpatient (REF) | payer OTHER, MEDICAID ==
[~2023-09-03] MED LIST changes: -CEFD300C41; +CEFD300C42
== END ==
LOC: M LAB REF 21:12
PROVIDERS: ATTEND Physician Assistant
DX: R05.9 Cough, unspecified (principal)

== ENCOUNTER → 2023-11-18 | Outpatient (REF) ==
[~2023-11-18] MED LIST changes: +CEFD1CAP9; -CEFD300C42
== END ==
LOC: M EMP 15:22
PROVIDERS: ATTEND Family Medicine
DX: Z11.52 Encounter for screening for COVID-19 (principal)

== ENCOUNTER → 2024-02-11 | Outpatient (REF) | LOC: M EMP 09:38 | PROVIDERS: ATTEND Family Medicine | DX: Z11.52 Encounter for screening for COVID-19 (principal) ==

== ENCOUNTER → 2024-03-16 | Outpatient (REF) | payer BC, MEDICAID, OTHER | LOC: M SFHCPLAZ 12:11 | PROVIDERS: ATTEND Student in an Organized Health Care Education/Training Program | DX: J01.10 Acute frontal sinusitis, unspecified (principal) ==

== ENCOUNTER → 2024-05-07 | Outpatient (CLI) | payer BC ==
[~2024-05-07] MED LIST changes: +ONDA-282 PO; -ONDA4TAB6 PO
[2024-05-07 18:26] LABS: BASO % 0.5 % (0.0-1.0); EOS # 0.1 10^3/uL (0.0-0.5); EOS % 0.7 % (0.0-3.0); HEMATOCRIT 40.5 % (36.0-47.0); HEMOGLOBIN 13.7 g/dl (12.0-15.5); LYMPH # 2.5 10^3/uL (1.5-5.0); LYMPH % 28.3 % (24.0-44.0); MEAN CORPUSCULAR HGB CONC 33.8 g/dl (32.0-36.5); MEAN CORPUSCULAR VOLUME 91.6 fl (80.0-96.0); MONO # 0.7 10^3/uL (0.0-0.8); MONO % 7.7 % (2.0-8.0); NEUTROPHILS # 5.5 10^3/uL (1.5-8.5); NEUTROPHILS % 62.6 % (36.0-66.0); PLATELET COUNT, AUTOMATED 237 10^3/uL (150-450); RED BLOOD COUNT 4.42 10^6/uL (4.00-5.40); WHITE BLOOD COUNT 8.8 10^3/uL (4.0-10.0)
[2024-05-07 18:53] LABS: ALBUMIN 4.1 G/DL (3.2-5.2); ALKALINE PHOSPHATASE 77 U/L (46-116); ALT/SGPT 22 U/L (7.0-40); AST/SGOT 10 U/L (<34); BILIRUBIN,TOTAL 0.3 MG/DL (0.3-1.2); BLOOD UREA NITROGEN 13 MG/DL (9-23); CALCIUM LEVEL 9.7 MG/DL (8.5-10.1); CARBON DIOXIDE LEVEL 26 MMOL/L (20-31); CHLORIDE LEVEL 105 MMOL/L (98-107); CHOLESTEROL LEVEL 185 MG/DL (<200); CHOLESTEROL RISK RATIO 3.07 (<5); CREATININE FOR GFR 0.65 MG/DL (0.55-1.30); GLOMERULAR FILTRATION RATE > 60.0 (>60); GLUCOSE, FASTING 96 MG/DL (60-100); HDL CHOLESTEROL 60.1 MG/DL (>40); LDL CHOLESTEROL 115.1 MG/DL (<100); NON-HDL-C 124.9 MG/DL; POTASSIUM SERUM 3.8 MMOL/L (3.5-5.1); PTH INTACT 26.5 PG/ML (18.5-88.0); SODIUM LEVEL 136 MMOL/L (136-145); TOTAL PROTEIN 6.8 G/DL (5.7-8.2); TRIGLYCERIDES LEVEL 49 MG/DL (<150)
[2024-05-07 18:54] LABS: TOTAL 25(OH) VITAMIN D 28.1 NG/ML (20.0-100.0)
[2024-05-07 18:55] LABS: FREE T4 1.22 NG/DL (0.89-1.76); THYROID STIMULATING HORMONE 2.068 uIU/ML (0.55-4.78)
[2024-05-07 19:05] LABS: HCG, SERUM QUALITATIVE POSITIVE (NEGATIVE)
[2024-05-07 19:20] LABS: HCG, SERUM QUANTITATIVE 597.1 MIU/ML (<4.2)
== END ==
LOC: M LAB 16:52
PROVIDERS: ATTEND Physician Assistant Medical
DX: J30.1 Allergic rhinitis due to pollen (principal); F41.9 Anxiety disorder, unspecified; E55.9 Vitamin D deficiency, unspecified; Z13.220 Encounter for screening for lipoid disorders; Z3A.01 Less than 8 weeks gestation of pregnancy

== ENCOUNTER → 2024-06-24 | Outpatient (CLI) | payer BC ==
[2024-06-24 12:23] LABS: HEMATOCRIT 38.4 % (36.0-47.0); HEMOGLOBIN 13.3 g/dl (12.0-15.5); MEAN CORPUSCULAR HEMOGLOBIN 30.9 pg (27.0-33.0); MEAN CORPUSCULAR HGB CONC 34.6 g/dl (32.0-36.5); MEAN CORPUSCULAR VOLUME 89.3 fl (80.0-96.0); PLATELET COUNT, AUTOMATED 226 10^3/uL (150-450); WHITE BLOOD COUNT 7.4 10^3/uL (4.0-10.0)
[2024-06-24 13:28] LABS: HIV 1&2 SCREEN NEGATIVE (NEGATIVE)
[2024-06-24 13:37] LABS: HEPATITIS C VIRUS ABY INDEX < 0.02 INDEX (<0.8)
[2024-06-24 13:57] LABS: GC DNA AMPLIFICATION NEGATIVE (NEGATIVE)
== END ==
LOC: M PLALAB 10:25
PROVIDERS: ATTEND Advanced Practice Midwife
DX: Z34.81 Encounter for supervision of other normal pregnancy, first trimester (principal)

== ENCOUNTER → 2024-08-21 | Outpatient (REF) | payer BC, OTHER, SELFPAY | LOC: M LAB REF 11:50 | PROVIDERS: ATTEND Physician Assistant Medical | DX: B34.9 Viral infection, unspecified (principal) ==

== ENCOUNTER → 2024-08-26 | Outpatient (CLI) | payer BC | LOC: M WHC 12:49 | PROVIDERS: ATTEND Obstetrics & Gynecology | DX: Z34.82 Encounter for supervision of other normal pregnancy, second trimester (principal) ==

== ENCOUNTER → 2024-10-04 | Outpatient (CLI) | payer BC ==
[2024-10-04 15:09] LABS: HEMATOCRIT 33.5 % (36.0-47.0); HEMOGLOBIN 11.6 g/dl (12.0-15.5); MEAN CORPUSCULAR HEMOGLOBIN 32.1 pg (27.0-33.0); MEAN CORPUSCULAR HGB CONC 34.6 g/dl (32.0-36.5); MEAN CORPUSCULAR VOLUME 92.8 fl (80.0-96.0); PLATELET COUNT, AUTOMATED 235 10^3/uL (150-450); RED BLOOD COUNT 3.61 10^6/uL (4.00-5.40); WHITE BLOOD COUNT 9.4 10^3/uL (4.0-10.0)
[2024-10-04 15:27] LABS: GLUCOSE CHALLENGE TEST 1 HOUR 106 MG/DL (LESS THAN 140)
[2024-10-04 15:57] LABS: HIV 1&2 SCREEN NEGATIVE (NEGATIVE)
[2024-10-04 16:05] LABS: HEPATITIS C VIRUS ABY INDEX 0.02 INDEX (<0.8)
[2024-10-04 16:35] LABS: GC DNA AMPLIFICATION NEGATIVE (NEGATIVE)
== END ==
LOC: M PLALAB 12:14
PROVIDERS: ATTEND Nurse Practitioner Family
DX: Z34.83 Encounter for supervision of other normal pregnancy, third trimester (principal)

== ENCOUNTER → 2024-10-13 | Outpatient (REF) | LOC: M EMP 07:39 | PROVIDERS: ATTEND Family Medicine | DX: Z11.52 Encounter for screening for COVID-19 (principal) ==

== ENCOUNTER 2024-10-29 20:54 | Outpatient (CLI) | payer BC ==
[~2024-10-29] VITALS: Ht 160 cm; Wt 78.2 kg
[2024-10-29 21:13] VITALS: BP 117/63; O2SAT 98
[2024-10-29 21:35] LABS: APPEARANCE, URINE HAZY (CLEAR); BACTERIA, URINE AUTO NEGATIVE (NEGATIVE); BILIRUBIN, URINE AUTO NEGATIVE (NEGATIVE); BLOOD, URINE BLOOD NEGATIVE (NEGATIVE); COLOR, URINE YELLOW (YELLOW); GLUCOSE, URINE (UA) AUTO NEGATIVE (NEGATIVE); KETONE, URINE AUTO 1+ mg/dL (NEGATIVE); LEUKOCYTE ESTERASE, URINE AUTO TRACE (NEGATIVE); MUCUS, URINE SMALL (NEGATIVE); NITRITE, URINE AUTO NEGATIVE (NEGATIVE); PROTEIN, URINE AUTO NEGATIVE (NEGATIVE); RBC, URINE AUTO 13 /HPF (0-3); SPECIFIC GRAVITY URINE AUTO 1.023 (1.002-1.035); SQUAMOUS EPITHELIAL CELL UR AU 6 /HPF (0-6); UROBILINOGEN, URINE AUTO 0.2 mg/dL (0.0-2.0); WBC, URINE AUTO 4 /HPF (0-3)
[2024-10-29 21:36] LABS: BASO % 0.2 % (0.0-1.0); EOS % 0.2 % (0.0-3.0); HEMATOCRIT 34.2 % (36.0-47.0); HEMOGLOBIN 11.5 g/dl (12.0-15.5); LYMPH # 2.1 10^3/uL (1.5-5.0); MEAN CORPUSCULAR HEMOGLOBIN 31.3 pg (27.0-33.0); MEAN CORPUSCULAR HGB CONC 33.6 g/dl (32.0-36.5); MEAN CORPUSCULAR VOLUME 93.2 fl (80.0-96.0); MONO # 0.6 10^3/uL (0.0-0.8); MONO % 4.9 % (2.0-8.0); NEUTROPHILS # 9.5 10^3/uL (1.5-8.5); NEUTROPHILS % 77.5 % (36.0-66.0); PLATELET COUNT, AUTOMATED 232 10^3/uL (150-450); RED BLOOD COUNT 3.67 10^6/uL (4.00-5.40); WHITE BLOOD COUNT 12.3 10^3/uL (4.0-10.0)
[2024-10-29] MEDS ORDERED: MONT-5 PO (21:51)
[2024-10-29] MEDS ORDERED: GNP250TA9 PO (21:51)
[2024-10-29 22:01] LABS: ALBUMIN 2.8 G/DL (3.2-5.2); ALKALINE PHOSPHATASE 94 U/L (35-104); ALT/SGPT < 9 U/L (7.0-40); AST/SGOT < 8 U/L (<34); BILIRUBIN,TOTAL 0.3 MG/DL (0.3-1.2); BLOOD UREA NITROGEN 15 MG/DL (9-23); CALCIUM LEVEL 9.2 MG/DL (8.5-10.1); CARBON DIOXIDE LEVEL 25 MMOL/L (20-31); CHLORIDE LEVEL 104 MMOL/L (98-107); CREATININE FOR GFR 0.83 MG/DL (0.55-1.30); GLOMERULAR FILTRATION RATE > 60.0 (>60); GLUCOSE, FASTING 97 MG/DL (60-100); POTASSIUM SERUM 3.7 MMOL/L (3.5-5.1); SODIUM LEVEL 138 MMOL/L (136-145); TOTAL PROTEIN 6.3 G/DL (5.7-8.2)
[2024-10-29] MEDS: KETOROLAC 30 MG/ML 1ML VIAL IV ONE (22:11)
[2024-10-29] MEDS: ONDANSETRON 4MG 2ML VIAL IV ONE (22:11)
[2024-10-29] MEDS: LACTATED RINGER'S 1000 ML IV STA (22:13)
[2024-10-29 22:29] VITALS: BP 99/59
[2024-10-29] MEDS: LR 1,000 ML IV SCH (23:04)
[2024-10-29 23:48] VITALS: BP 107/65
[2024-10-30] VITALS (13 sets, daily range): BP systolic 106–123; BP diastolic 55–66; O2SAT 95–98
[2024-10-30] MEDS: ONDANSETRON 4MG 2ML VIAL IV ONE (04:18)
[2024-10-30] MEDS: KETOROLAC 30 MG/ML 1ML VIAL IV ONE ×2 (04:22→12:22)
[2024-10-30] MEDS ORDERED: HYDR-3713 PO (07:27)
[2024-10-30] MEDS ORDERED: COLA100C5 PO (07:28)
[2024-10-30] MEDS: SUCRALFATE 1 GM TAB PO ONE (09:37)
[2024-10-30] MEDS: TAMSULOSIN 0.4 MG CAP PO SCH (13:50)
[2024-10-30] MEDS: ONDANSETRON 4MG TAB PO PRN (16:30)
[2024-10-30] MEDS: ACETAMINOPHEN 500 MG TAB PO PRN (16:30)
[2024-10-30] MEDS ORDERED: FLOM0.4C39 PO (18:44)
[2024-10-30] MEDS ORDERED: ONDA-83 PO (18:44)
== END 2024-10-30 18:28 | disposition home or self-care (01) ==
LOC: M LDO 20:54 → UNDOADMOB 23:43 → M LDI 23:43 → M LDO 10-30 18:28 → UNDODISOB 10-30 18:28
PROVIDERS: ATTEND Specialist
DX: O47.03 False labor before 37 completed weeks of gestation, third trimester (principal); O26.893 Other specified pregnancy related conditions, third trimester; R10.30 Lower abdominal pain, unspecified; Z3A.30 30 weeks gestation of pregnancy
CPT/HCPCS: 36415; 59025; 76775; 80053; 81001; 85025; 96374; 96375; 96376; G0463; J1885; J2405

== ENCOUNTER → 2024-11-05 | Outpatient (REF) | payer BC ==
[~2024-11-05] MED LIST changes: +FLOM0.4C39 PO; +GNP250TA9 PO; +HYDR-3713 PO; +MONT-5 PO; +ONDA-83 PO
== END ==
LOC: M PLALAB 11:50
PROVIDERS: ATTEND Nurse Practitioner Family
DX: R10.9 Unspecified abdominal pain (principal)

== ENCOUNTER 2024-11-18 15:18 | Outpatient (CLI) | payer BC ==
[~2024-11-18] VITALS: Ht 154.9 cm; Wt 79.2 kg
[2024-11-18] MEDS ORDERED: HOME MED LIST COMPLETE! XX SCH (15:35)
[2024-11-18 15:36] VITALS: BP 112/62
== END 2024-11-18 15:54 | disposition home or self-care (01) ==
LOC: M LDO 15:18
PROVIDERS: ATTEND Obstetrics & Gynecology
DX: O99.63 Diseases of the digestive system complicating the puerperium (principal); K59.00 Constipation, unspecified; Z3A.32 32 weeks gestation of pregnancy
CPT/HCPCS: 59025; G0463

== ENCOUNTER → 2024-12-09 | Outpatient (REF) | payer BC | LOC: M SFHCWAGY 12:32 | PROVIDERS: ATTEND Nurse Practitioner Family | DX: Z36.89 Encounter for other specified antenatal screening (principal); Z3A.36 36 weeks gestation of pregnancy ==

== ENCOUNTER 2024-12-27 18:19 | Outpatient (CLI) | payer BC ==
[~2024-12-27] VITALS: Ht 154.9 cm; Wt 80.5 kg
[2024-12-27] MEDS ORDERED: ACET-907 PO (18:27)
[2024-12-27] MEDS ORDERED: HOME MED LIST COMPLETE! XX SCH (18:30)
[2024-12-27 18:33] VITALS: BP 115/71
== END 2024-12-27 21:06 | disposition home or self-care (01) ==
LOC: M LDO 18:19
PROVIDERS: ATTEND Advanced Practice Midwife
DX: O47.1 False labor at or after 37 completed weeks of gestation (principal); O99.513 Diseases of the respiratory system complicating pregnancy, third trimester; O35.01 Maternal care for (suspected) central nervous system malformation or damage in fetus, agenesis of the corpus callosum; J45.909 Unspecified asthma, uncomplicated; Q07.00 Arnold-Chiari syndrome without spina bifida or hydrocephalus; Z3A.38 38 weeks gestation of pregnancy
CPT/HCPCS: 59025; G0463

== ENCOUNTER 2025-01-06 22:04 | Inpatient (IN) | payer BC ==
[~2025-01-06] VITALS: Ht 154.9 cm; Wt 81.8 kg
[~2025-01-06 22:04] MED LIST changes: +ACET-907 PO
[2025-01-06 22:25] VITALS: BP 140/83
[2025-01-06] MEDS ORDERED: CARBOPROST TROMETHAMINE 250 MCG/ML AMP IM PRN (22:25)
[2025-01-06] MEDS ORDERED: TRANEXAMIC ACID INJection 1,000 MG in NS 100 ML IV PRN (22:25)
[2025-01-06] MEDS ORDERED: OXYTOCIN INJ 10UNITS/ML 1ML VIAL IM PRN (22:25)
[2025-01-06] MEDS ORDERED: METHYLERGONOVINE MALEATE 0.2MG/ML 1ML VIAL IM PRN (22:25)
[2025-01-06] MEDS: LACTATED RINGER'S 1000 ML IV STA (22:32)
[2025-01-06] MEDS: ONDANSETRON 4MG 2ML VIAL IV ONE (22:47)
[2025-01-06 22:48] LABS: HEMATOCRIT 37.6 % (36.0-47.0); HEMOGLOBIN 13.1 g/dl (12.0-15.5); MEAN CORPUSCULAR HEMOGLOBIN 31.6 pg (27.0-33.0); MEAN CORPUSCULAR HGB CONC 34.8 g/dl (32.0-36.5); MEAN CORPUSCULAR VOLUME 90.8 fl (80.0-96.0); PLATELET COUNT, AUTOMATED 212 10^3/uL (150-450); RED BLOOD COUNT 4.14 10^6/uL (4.00-5.40); WHITE BLOOD COUNT 11.5 10^3/uL (4.0-10.0)
[2025-01-06] MEDS: METOCLOPRAMIDE INJ 10MG/2ML VIAL IV ONE (23:18)
[2025-01-06] MEDS ORDERED: LR 500 ML IV PRN (23:30)
[2025-01-06] MEDS ORDERED: diphenhydrAMINE 50MG/ML VIAL IV PRN (23:30)
[2025-01-06] MEDS ORDERED: ONDANSETRON 4MG 2ML VIAL IV PRN (23:30)
[2025-01-06] MEDS ORDERED: EPIDURAL/PCA KEYS XX PRN (23:30)
[2025-01-06] MEDS ORDERED: NALOXONE INJ 0.4MG/1ML VIAL IV PRN (23:30)
[2025-01-06] MEDS: LR 1,000 ML IV SCH (23:30)
[2025-01-06] MEDS ORDERED: FENTANYL/ROPIVACAINE/NACL BAG 100 ML EPIDURAL SCH (23:30)
[2025-01-06] MEDS ORDERED: ePHEDrine SULFATE 25 MG/5 ML(5MG/ML) SYRINGE IVP PRN (23:30)
[2025-01-06 23:41] LABS: HIV 1&2 SCREEN NEGATIVE (NEGATIVE)
[2025-01-06 23:49] LABS: HEPATITIS C VIRUS ABY INDEX 0.11 INDEX (<0.8)
[2025-01-06] MEDS: OXYTOCIN DRIP 30 UNITS in IV 1 EA IV PRN (23:54)
[2025-01-06] MEDS: LIDOCAINE 1% MDV 20ML VIAL INFIL PRN (23:54)
[2025-01-07 00:07] LABS: CORD GAS ABE A -3.6; CORD GAS ABE V -4.4; CORD GAS HCO3 A 26.1 MMOL/L; CORD GAS HCO3 V 20.8 MMOL/L; CORD GAS O2 SAT A 15.2 %; CORD GAS O2 SAT V 73.8 %; CORD GAS PCO2 A 68.5 mmHg; CORD GAS PCO2 V 38.9 mmHg; CORD GAS PH A 7.199 UNITS; CORD GAS PH V 7.345 UNITS; CORD GAS PO2 A 11.8 mmHg; CORD GAS PO2 V 32.6 mmHg; CORD GAS SBC A 19.6 MMOL/L; CORD GAS SBC V 20.3 MMOL/L; CORD GAS TCO2 A 28.2 MMOL/L; CORD GAS TCO2 V 21.9 MMOL/L
[2025-01-07 00:15] VITALS: BP 158/74
[2025-01-07] MEDS ORDERED: ACETAMINOPHEN 325 MG TAB PO PRN (00:25)
[2025-01-07] MEDS ORDERED: IBUPROFEN 600MG TAB PO PRN (00:25)
[2025-01-07] MEDS: OXYTOCIN DRIP 30 UNITS in IV 1 EA IV SCH (00:25)
[2025-01-07] MEDS ORDERED: CALCIUM CARBONATE 500 MG CHEW U/D PO PRN (00:25)
[2025-01-07] MEDS ORDERED: ANUSOL HC CREAM 30GM TOP PRN (00:25)
[2025-01-07] MEDS ORDERED: MOM 30ML SUSPENSION UDC PO PRN (00:25)
[2025-01-07] MEDS ORDERED: RHOGAM 300MCG (1500IU) INJ IM SCH (00:25)
[2025-01-07] MEDS ORDERED: METHYLERGONOVINE MALEATE 0.2 MG TAB PO PRN (00:25)
[2025-01-07 00:47] VITALS: BP 122/65
[2025-01-07] MEDS: IBUPROFEN 800 MG TAB PO PRN (01:06)
[2025-01-07] MEDS: ACETAMINOPHEN 500 MG TAB PO PRN (01:06)
[2025-01-07 01:09] VITALS: BP 116/90
[2025-01-07 02:45] VITALS: BP 118/63; O2SAT 95
[2025-01-07] MEDS: DIBUCAINE 1% OINTMENT 30GM TOP PRN (03:27)
[2025-01-07 06:00] VITALS: BP 120/61; O2SAT 96
[2025-01-07] MEDS: DOCUSATE SODIUM 100MG CAPSULE PO SCH (08:04)
[2025-01-07] MEDS: PRENATAL VITAMINS CHEWABLE TABLET PO SCH (08:04)
[2025-01-07 18:00] VITALS: BP 112/60; O2SAT 97
[2025-01-08 06:00] VITALS: BP 119/57; O2SAT 96
[2025-01-09] MEDS ORDERED: MEASLES,MUMPS,RUBELLA VACCINE INJ (MMR-II) SC.IMMUN ONE (09:00)
== END 2025-01-08 14:16 | disposition home or self-care (01) | DRG 560 ==
LOC: M LDO 22:04 → M LDI 22:30 → OBSVTOIN 22:30 → M OBS 01-07 02:40
PROVIDERS: ADMIT Obstetrics & Gynecology; ATTEND Obstetrics & Gynecology
PROC: 10E0XZZ Delivery of Products of Conception, External Approach (ICD-10-PCS; principal; 2025-01-07)
PROC: 0KQM0ZZ Repair Perineum Muscle, Open Approach (ICD-10-PCS; 2025-01-07)
DX: O69.1XX0 Labor and delivery complicated by cord around neck, with compression, not applicable or unspecified (principal); Z37.0 Single live birth; Z3A.39 39 weeks gestation of pregnancy; O70.1 Second degree perineal laceration during delivery; Z88.0 Allergy status to penicillin

== ENCOUNTER → 2025-02-17 | Outpatient (REF) | payer BC | LOC: M PLALAB 13:54 | PROVIDERS: ATTEND Obstetrics & Gynecology | DX: R30.0 Dysuria (principal) ==

== ENCOUNTER → 2025-03-16 | Outpatient (CLI) | payer BC ==
[2025-03-16 17:28] LABS: BASO % 0.5 % (0.0-1.0); EOS # 0.1 10^3/uL (0.0-0.5); EOS % 0.9 % (0.0-3.0); HEMATOCRIT 41.5 % (36.0-47.0); LYMPH # 3.9 10^3/uL (1.5-5.0); LYMPH % 45.4 % (24.0-44.0); MEAN CORPUSCULAR HEMOGLOBIN 31.5 pg (27.0-33.0); MEAN CORPUSCULAR HGB CONC 33.7 g/dl (32.0-36.5); MEAN CORPUSCULAR VOLUME 93.5 fl (80.0-96.0); MONO # 0.6 10^3/uL (0.0-0.8); NEUTROPHILS # 3.9 10^3/uL (1.5-8.5); NEUTROPHILS % 46.1 % (36.0-66.0); PLATELET COUNT, AUTOMATED 314 10^3/uL (150-450); RED BLOOD COUNT 4.44 10^6/uL (4.00-5.40); WHITE BLOOD COUNT 8.5 10^3/uL (4.0-10.0)
[2025-03-16 17:50] LABS: HEMOGLOBIN A1c 4.8 % (4.0-6.0)
[2025-03-16 18:01] LABS: ALBUMIN 3.9 G/DL (3.2-5.2); BILIRUBIN,TOTAL 0.3 MG/DL (0.3-1.2); CALCIUM LEVEL 9.6 MG/DL (8.5-10.1); CHOLESTEROL RISK RATIO 3.42 (<5); CREATININE FOR GFR 1.03 MG/DL (0.55-1.30); HDL CHOLESTEROL 65.6 MG/DL (>40); LDL CHOLESTEROL 137.8 MG/DL (<100); NON-HDL-C 159.4 MG/DL; POTASSIUM SERUM 4.1 MMOL/L (3.5-5.1); TOTAL PROTEIN 7.1 G/DL (5.7-8.2)
[2025-03-16 18:03] LABS: TOTAL 25(OH) VITAMIN D 49.6 NG/ML (20.0-100.0)
== END ==
LOC: M PLALAB 16:02
PROVIDERS: ATTEND Physician Assistant Medical
DX: Z83.3 Family history of diabetes mellitus (principal)

== ENCOUNTER → 2025-04-05 | Outpatient (CLI) | payer BC ==
[~2025-04-05] MED LIST changes: -FLOM0.4C39 PO; +LIDO1ADH93 TD; -LIDO5DIS41 TD; +TAMS-18 PO
== END ==
LOC: M WUC 11:35
PROVIDERS: ATTEND Physician Assistant
DX: M79.675 Pain in left toe(s) (principal)

== ENCOUNTER 2025-06-20 16:05 | Emergency (ER) | payer OTHER, BC ==
[2025-06-20 16:48] VITALS: BP 133/60; TEMP 98.9; O2SAT 98
[2025-06-20] MEDS ORDERED: ETON1VAG (16:52)
[2025-06-20] MEDS ORDERED: SERT50TA29 PO (16:52)
[2025-06-20 17:09] LABS: BASO # 0.0 10^3/uL (0.0-0.2); BASO % 0.5 % (0.0-1.0); EOS # 0.1 10^3/uL (0.0-0.5); EOS % 1.1 % (0.0-3.0); LYMPH # 3.1 10^3/uL (1.5-5.0); LYMPH % 37.3 % (24.0-44.0); MONO # 0.7 10^3/uL (0.0-0.8); MONO % 7.7 % (2.0-8.0); NEUTROPHILS # 4.5 10^3/uL (1.5-8.5); NEUTROPHILS % 53.2 % (36.0-66.0); PLATELET COUNT, AUTOMATED 276 10^3/uL (150-450)
[2025-06-20 17:23] LABS: ALT/SGPT 19 U/L (7.0-40); AST/SGOT 20 U/L (<34); CALCIUM LEVEL 9.1 MG/DL (8.5-10.1); CARBON DIOXIDE LEVEL 24 MMOL/L (20-31); CHLORIDE LEVEL 106 MMOL/L (98-107); CREATININE FOR GFR 0.77 MG/DL (0.55-1.30); GLOMERULAR FILTRATION RATE > 90.0 (>60); POTASSIUM SERUM 3.8 MMOL/L (3.5-5.1); SODIUM LEVEL 142 MMOL/L (136-145)
[2025-06-20 17:30] LABS: HCG, SERUM QUALITATIVE NEGATIVE (NEGATIVE); HEPATITIS B SURFACE ANTIBODY NEGATIVE (POSITIVE)
[2025-06-20 17:55] LABS: HIV SCREEN CENTAUR EXPOSED NEGATIVE (NEGATIVE)
[2025-06-20 18:03] LABS: HEPATITIS C VIRUS ABY INDEX < 0.02 INDEX (<0.8)
== END 2025-06-20 17:23 | disposition home or self-care (01) ==
LOC: M ED 16:05
DX: S61.031A Puncture wound without foreign body of right thumb without damage to nail, initial encounter (principal); W46.0XXA Contact with hypodermic needle, initial encounter; Z77.21 Contact with and (suspected) exposure to potentially hazardous body fluids; Z88.1 Allergy status to other antibiotic agents; Y92.89 Other specified places as the place of occurrence of the external cause; Y93.89 Activity, other specified; Y99.0 Civilian activity done for income or pay; Z79.899 Other long term (current) drug therapy

== ENCOUNTER → 2025-06-28 | Outpatient (REF) | payer OTHER, BC ==
[~2025-06-28] MED LIST changes: +ETON1VAG; +SERT50TA29 PO
[2025-06-30 14:22] LABS: HPV APTIMA Not Detected (Not Detected)
== END ==
LOC: M SFHCWAGY 09:51
PROVIDERS: ATTEND Obstetrics & Gynecology
DX: Z12.4 Encounter for screening for malignant neoplasm of cervix (principal)
CPT/HCPCS: 87624; G0123

== ENCOUNTER → 2025-07-11 | Outpatient (REF) | payer BC | LOC: M LAB REF 21:11 | PROVIDERS: ATTEND Physician Assistant Medical | DX: B34.9 Viral infection, unspecified (principal) ==

== ENCOUNTER → 2025-07-28 | Outpatient (REF) | LOC: M LAB 08:33 | PROVIDERS: ATTEND Family Medicine | DX: Z01.89 Encounter for other specified special examinations (principal) ==

== ENCOUNTER → 2025-10-12 | Outpatient (REF) ==
[2025-10-12 11:01] LABS: SOFIA COVID ANTIGEN NEGATIVE (NEGATIVE)
== END ==
LOC: M EMP 08:24
PROVIDERS: ATTEND Family Medicine
DX: Z20.822 Contact with and (suspected) exposure to COVID-19 (principal)

== ENCOUNTER 2025-11-12 23:03 | Emergency (ER) | payer OTHER, BC ==
[~2025-11-12] VITALS: Ht 154.9 cm; Wt 76.8 kg
[2025-11-13 00:19] LABS: BASO # 0.1 10^3/uL (0.0-0.2); BASO % 0.5 % (0.0-1.0); EOS # 0.1 10^3/uL (0.0-0.5); EOS % 1.4 % (0.0-3.0); LYMPH # 4.3 10^3/uL (1.5-5.0); LYMPH % 42.0 % (24.0-44.0); MONO # 0.8 10^3/uL (0.0-0.8); MONO % 7.7 % (2.0-8.0); NEUTROPHILS # 4.9 10^3/uL (1.5-8.5); NEUTROPHILS % 48.2 % (36.0-66.0); PLATELET COUNT, AUTOMATED 267 10^3/uL (150-450)
[2025-11-13 00:45] VITALS: BP 118/63; TEMP 98.3; O2SAT 98
[2025-11-13 00:52] LABS: ALT/SGPT 24 U/L (7.0-40); AST/SGOT 19 U/L (<34); CALCIUM LEVEL 9.3 MG/DL (8.5-10.1); CARBON DIOXIDE LEVEL 27 MMOL/L (20-31); CHLORIDE LEVEL 103 MMOL/L (98-107); CREATININE FOR GFR 0.80 MG/DL (0.55-1.30); GLOMERULAR FILTRATION RATE > 90.0 (>60); HCG, SERUM QUALITATIVE NEGATIVE (NEGATIVE); HEPATITIS B SURFACE ANTIBODY POSITIVE (POSITIVE); POTASSIUM SERUM 3.8 MMOL/L (3.5-5.1); SODIUM LEVEL 140 MMOL/L (136-145)
[2025-11-13 01:18] LABS: HIV SCREEN CENTAUR EXPOSED NEGATIVE (NEGATIVE)
[2025-11-13 01:25] LABS: HEPATITIS C VIRUS ABY INDEX 0.04 INDEX (<0.8)
== END 2025-11-13 01:17 | disposition home or self-care (01) ==
LOC: M ED 23:03
DX: Z77.21 Contact with and (suspected) exposure to potentially hazardous body fluids (principal); Z88.1 Allergy status to other antibiotic agents; Y92.230 Patient room in hospital as the place of occurrence of the external cause; Y93.F9 Activity, other caregiving; Y99.0 Civilian activity done for income or pay; Z79.899 Other long term (current) drug therapy